=== PATIENT | female | born 1950 | race Caucasian/White ===

== ENCOUNTER 2020-11-11 15:17 | Emergency (ER) | payer MEDICARE ==
[~2020-11-11] VITALS: Ht 154.9 cm; Wt 64.4 kg
[2020-11-11 16:10] VITALS: BP 142/75
--- NOTE | 2020-11-11 16:13 | NUR ---
TO LOBBY A/W BED AMBULATORY
--- NOTE | 2020-11-11 17:25 | NUR ---
SEEN AND EXAMINED BY BIPIN WITH ORDERS AND CARRIED OUT
[2020-11-11] MEDS ORDERED: NACL 0.9% 1,000 ML IV ONE (17:30)
[2020-11-11] MEDS ORDERED: MORPHINE SULFATE 2 MG/ML SYR IVP ONE (17:30)
[2020-11-11] MEDS ORDERED: ONDANSETRON 4 MG/2 ML VIAL IVP ONE (17:30)
[2020-11-11] MEDS ORDERED: PANTOPRAZOLE 40 MG INJ VIAL IVP ONE (17:30)
--- NOTE | 2020-11-11 17:30 | NUR ---
BIPIN MADE AWARE THAT UNABLE TO GIVE IV MEDS IN LOBBY
[2020-11-11 18:00] VITALS: BP 142/75
[2020-11-11 18:05] LABS: BASOPHILS % (AUTO) 0.2 % (0.0-2.0); EOSINOPHILS # (AUTO) 0.3 K/uL (0-0.4); EOSINOPHILS % (AUTO) 2.4 % (0.0-4.0); HEMATOCRIT 34.1 % (36-48); LYMPHOCYTES # (AUTO) 2.2 K/uL (2.5-16.5); LYMPHOCYTES % (AUTO) 20.8 % (20.5-51.1); MEAN CORPUSCULAR HEMOGLOBIN 32 pg (27-31); MEAN CORPUSCULAR HGB CONC 35 g/dL (33-37); MEAN CORPUSCULAR VOLUME 91.1 fL (80-94); MONOCYTES # (AUTO) 0.6 K/uL (0.8-1.0); NEUTROPHILS # (AUTO) 7.3 K/uL (1.8-7.7); NEUTROPHILS % (AUTO) 70.6 % (42.2-75.2); PLATELET COUNT (AUTO) 228 K/uL (140-450); RED BLOOD CELL COUNT(AUTO) 3.74 MIL/uL (4.20-5.40); RED CELL DISTRIBUTION WIDTH 13.1 % (11.6-13.7); WHITE BLOOD COUNT (AUTO) 10.4 K/uL (4.8-10.8)
[2020-11-11 18:30] LABS: APPEARANCE,URINE CLEAR (CLEAR); BILIRUBIN,URINE NEGATIVE (NEGATIVE); BLOOD, URINE NEGATIVE (NEGATIVE); COLOR,URINE YELLOW (YELLOW); LEUKOCYTE ESTERASE ,URINE TRACE (NEGATIVE); NITRITE, URINE POSITIVE (NEGATIVE); PH,URINE 5.5 (5.0-9.0); UGLUCOSE NEGATIVE (NEGATIVE)
[2020-11-11 18:39] LABS: ALBUMIN 4.2 g/dL (3.4-5.0); CARBON DIOXIDE 26.6 mmol/L (21-32); CREATININE 0.9 mg/dL (0.6-1.3); POTASSIUM 3.6 mmol/L (3.5-5.1); TOTAL BILIRUBIN 0.3 mg/dL (0.0-1.0)
[2020-11-11 19:00] LABS: RBC,URINE 0-5 /HPF (0-5)
[2020-11-11] MEDS ORDERED: ALUMINUM HYD/MAG/SIMETHICONE 30 ML, DICYCLOMINE HCL LIQUID 20 MG, LIDOCAINE VISCOUS 2% ... PO ONE ×3 (22:50)
[2020-11-11] MEDS ORDERED: ALUMINUM HYD/MAG/SIMETHICONE 30 ML UDC ONE (22:54)
[2020-11-11] MEDS ORDERED: cefTRIAXone 1,000 MG in LIDOCAINE MPF 1% 2.1 ML IM ONE (23:00)
--- NOTE | 2020-11-11 23:50 | NUR ---
EKG PERFORMED IN PHLEBOTOMY CHAIR. EKG READS SINUS RHYTHM @ 68
--- NOTE | 2020-11-11 23:50 | NUR ---
MEDICATED PER [facility] ORDER, TOLERATED WELL
[2020-11-11] MEDS ORDERED: cefTRIAXone 1,000 MG VIAL ONE (23:58)
[2020-11-11] MEDS ORDERED: LIDOCAINE MPF 1% 5 ML ONE (23:58)
--- NOTE | 2020-11-12 00:20 | NUR ---
Patient discharged with v/s stable. Written and verbal after care instructions given and explained. Patient alert, oriented and verbalized understanding of instructions. Ambulatory with steady gait. All questions addressed prior to discharge. ID band removed. Patient advised to follow up with PMD. Rx of KEFLEX, PROTONIX given. Patient educated on indication of medication including possible reaction and side effects. Opportunity to ask questions provided and answered.
== END 2020-11-12 00:20 | disposition home or self-care (01) ==
LOC: MED 15:17
DX: R10.13 Epigastric pain (principal); I10 Essential (primary) hypertension; Z90.49 Acquired absence of other specified parts of digestive tract; Z98.890 Other specified postprocedural states
CPT/HCPCS: 36415; 74176; 80053; 81001; 83605; 83690; 84484; 85025; 87086; 93005; 96372; 99285; J0696; J2001